=== PATIENT | female | born 1930 | race Caucasian/White ===

== ENCOUNTER 2017-03-31 06:06 | Emergency (ER) | payer MEDICARE ==
[~2017-03-31] VITALS: Ht 15.2 cm; Wt 81.6 kg
[~2017-03-31 06:06] MED LIST changes: -ASPI81TA94 PO; -SIMV-49 PO
[2017-03-31] MEDS ORDERED: SIMV-49 PO (06:11)
--- NOTE | 2017-03-31 06:16 | ER Report ---
History and Physical Time Seen By MD: 06:09 (RAMESH MARCIAL DO) HPI/ROS CHIEF COMPLAINT: Chest tightness HISTORY OF PRESENT ILLNESS: 86-year-old female presents ambulatory to the ER for her checked. She states she woke at 2 AM with tightness across her chest radiating into her arms. Patient took 2 baby aspirin at home. She describes her arms is numb and heavy. She notes no diaphoresis or shortness of breath, but she notes some nausea. On arrival, her blood pressure is noted be grossly elevated 260/121. Patient states she was told her blood pressure was elevated in February and that she should follow-up with her primary care. She did not. Patient denies recent illness. Patient notes no alleviating or exacerbating factors. REVIEW OF SYSTEMS: Respiratory: No cough, no dyspnea. Cardiovascular: As above Gastrointestinal: No vomiting, no abdominal pain. Musculoskeletal: No back pain. (RAMESH MARCIAL DO) Allergies: Uncoded Allergies: RUBBING ALCOHOL (Adverse Reaction, Mild, RASH, 05/28/07) Home Meds Reported Medications Aspirin (ASPIRIN) 81 Mg Tab.chew, 81 MG PO QDAY, TAB.CHEW 03/31/17 Simvastatin (SIMVASTATIN) 20 Mg Tablet, 20 MG PO HS, TAB 03/31/17 Gabapentin (Neurontin) 300 Mg Cap, 300 MG PO BID 05/28/07 Levothyroxine Sodium (Synthroid/Levothroid) 0.075 Mg Tab, 0.075 MG PO QDAY 05/28/07 Discontinued Reported Medications Lovastatin (Lovastatin) 40 Mg Tablet, 40 MG PO DAILY 05/28/07 Past Medical/Surgical History Past medical history: Degenerative disc disease status post lumbar surgery age 54, status post hysterectomy at age 39 for fibroids, hypothyroidism, hypercholesterolemia, peripheral neuropathy, idiopathic, overactive bladder, macular degeneration, status post I injection every 2 months at [facility], glaucoma, right eye (RAMESH MARCIAL DO) Reviewed Nurses Notes: Yes Old Medical Records Reviewed: Yes (RAMESH MARCIAL DO) Smoking Status: Never Smoker (RAMESH MARCIAL DO) Constitutional Vital Sign - Last 24 Hours 03/31/17 03/31/17 03/31/17 03/31/17 06:06 06:11 06:15 06:30 Temp 98.0 Pulse ??? 69 Resp 20 B/P (MAP) 260/121 (167) 260/121 243/75 (130) Pulse Ox 94 O2 Delivery Room Air 03/31/17 03/31/17 03/31/17 03/31/17 06:36 06:38 06:58 07:01 Pulse 62 61 75 Resp 16 29 B/P (MAP) 196/72 (113) Pulse Ox 94 94 03/31/17 03/31/17 03/31/17 03/31/17 07:10 07:13 07:18 07:26 Pulse 79 70 Resp 21 27 B/P (MAP) 237/113 (154) 172/82 (112) 164/78 (106) Pulse Ox 95 94 03/31/17 03/31/17 03/31/17 03/31/17 07:30 07:33 07:45 07:48 Pulse 70 72 Resp 22 15 B/P (MAP) 194/66 (108) 175/74 (107) Pulse Ox 92 92 03/31/17 03/31/17 03/31/17 03/31/17 08:00 08:03 08:15 08:30 Pulse 72 Resp 10 B/P (MAP) 174/79 (110) 172/82 (112) 177/87 (117) Pulse Ox 93 03/31/17 03/31/17 03/31/17 03/31/17 08:33 08:46 08:48 08:53 Pulse 77 65 61 Resp 15 23 16 B/P (MAP) 206/72 (116) Pulse Ox 95 94 93 03/31/17 03/31/17 03/31/17 03/31/17 09:00 09:08 09:15 09:23 Pulse 68 67 Resp 15 18 B/P (MAP) 192/80 (117) 181/72 (108) Pulse Ox 93 92 03/31/17 03/31/17 03/31/17 03/31/17 09:36 09:45 09:53 10:00 Pulse 66 Resp 12 B/P (MAP) 167/76 (106) 152/72 (98) 146/67 (93) Pulse Ox 92 03/31/17 03/31/17 03/31/17 10:08 10:15 10:20 Pulse 69 65 Resp 14 B/P (MAP) 142/65 (90) Pulse Ox 93 (WANDA BHANDARI MD) Physical Exam Vital signs stable, grossly elevated blood pressure 260/121, pulse ox normal, afebrile, no acute distress General Appearance: The patient is alert, has no immediate need for airway protection and no current signs of toxicity. HEENT: Pupils equal and round no injection. Oropharynx without redness or exudate, mucous. Membranes are moist Respiratory: Chest is non tender, lungs are clear to auscultation. No chest wall tenderness Cardiac: regular rate and rhythm, no murmur Gastrointestinal: Abdomen is soft and non tender, no masses, bowel sounds normal. Musculoskeletal: Neck: Neck is supple and non tender. No JVD, no lymphadenopathy Extremities have full range of motion and are non tender. No edema, no calf tenderness Skin: No rashes or lesions. DIFFERENTIAL DIAGNOSIS: After history and physical exam differential diagnosis was considered for chest pain including but not limited to myocardial ischemia, pericarditis pulmonary embolus, chest wall pain, pleural inflammation and pulmonary infectious causes. (RAMESH MARCIAL DO) Medical Decision Making Data Points Result Diagram: 03/31/17 0618 03/31/17 0618 Laboratory Hematology Test 03/31/17 06:18 03/31/17 09:32 Red Blood Count 5.24 M/uL (4.17-5.56) Mean Corpuscular Volume 83.9 fL (80.0-96.0) Mean Corpuscular Hemoglobin 28.3 pg (26.0-33.0) Mean Corpuscular Hemoglobin Concent 33.8 g/dL (32.0-36.0) Red Cell Distribution Width 15.5 % (11.5-14.5) Mean Platelet Volume 7.2 fL (7.2-11.1) Neutrophils (%) (Auto) 56.1 % (39.4-72.5) Lymphocytes (%) (Auto) 27.4 % (17.6-49.6) Monocytes (%) (Auto) 8.0 % (4.1-12.4) Eosinophils (%) (Auto) 8.2 % (0.4-6.7) Basophils (%) (Auto) 0.3 % (0.3-1.4) Nucleated RBC Relative Count (auto) 0.0 /100WBC Neutrophils # (Auto) 3.1 K/uL (2.0-7.4) Lymphocytes # (Auto) 1.5 K/uL (1.3-3.6) Monocytes # (Auto) 0.4 K/uL (0.3-1.0) Eosinophils # (Auto) 0.5 K/uL (0.0-0.5) Basophils # (Auto) 0.0 K/uL (0.0-0.1) Nucleated RBC Absolute Count (auto) 0.00 K/uL Sodium Level 142 mmol/L (137-145) Potassium Level 4.0 mmol/L (3.5-5.0) Chloride Level 101 mmol/L (98-107) Carbon Dioxide Level 31 mmol/L (22-31) Blood Urea Nitrogen 10 mg/dl (7-18) Creatinine 0.80 mg/dl (0.52-1.04) Glomerular Filtration Rate Calc > 60.0 Random Glucose 126 mg/dl (75-110) Calcium Level 9.3 mg/dl (8.4-10.2) Total Bilirubin 0.7 mg/dl (0.2-1.3) Aspartate Amino Transf (AST/SGOT) 25 U/L (0-35) Alanine Aminotransferase (ALT/SGPT) 31 U/L (0-56) Alkaline Phosphatase 84 U/L (0-126) B-Type Natriuretic Peptide 128 pg/ml (0-100) Total Protein 7.4 gm/dl (6.3-8.2) Albumin 4.1 g/dl (3.5-5.0) Troponin I < 0.012 ng/ml Chemistry Test 03/31/17 06:18 03/31/17 09:32 White Blood Count 5.5 k/uL (4.5-11.0) Red Blood Count 5.24 M/uL (4.17-5.56) Hemoglobin 14.8 g/dL (12.0-16.0) Hematocrit 44.0 % (34.0-47.0) Mean Corpuscular Volume 83.9 fL (80.0-96.0) Mean Corpuscular Hemoglobin 28.3 pg (26.0-33.0) Mean Corpuscular Hemoglobin Concent 33.8 g/dL (32.0-36.0) Red Cell Distribution Width 15.5 % (11.5-14.5) Platelet Count 198 K/uL (150-450) Mean Platelet Volume 7.2 fL (7.2-11.1) Neutrophils (%) (Auto) 56.1 % (39.4-72.5) Lymphocytes (%) (Auto) 27.4 % (17.6-49.6) Monocytes (%) (Auto) 8.0 % (4.1-12.4) Eosinophils (%) (Auto) 8.2 % (0.4-6.7) Basophils (%) (Auto) 0.3 % (0.3-1.4) Nucleated RBC Relative Count (auto) 0.0 /100WBC Neutrophils # (Auto) 3.1 K/uL (2.0-7.4) Lymphocytes # (Auto) 1.5 K/uL (1.3-3.6) Monocytes # (Auto) 0.4 K/uL (0.3-1.0) Eosinophils # (Auto) 0.5 K/uL (0.0-0.5) Basophils # (Auto) 0.0 K/uL (0.0-0.1) Nucleated RBC Absolute Count (auto) 0.00 K/uL Glomerular Filtration Rate Calc > 60.0 Calcium Level 9.3 mg/dl (8.4-10.2) Total Bilirubin 0.7 mg/dl (0.2-1.3) Aspartate Amino Transf (AST/SGOT) 25 U/L (0-35) Alanine Aminotransferase (ALT/SGPT) 31 U/L (0-56) Alkaline Phosphatase 84 U/L (0-126) B-Type Natriuretic Peptide 128 pg/ml (0-100) Total Protein 7.4 gm/dl (6.3-8.2) Albumin 4.1 g/dl (3.5-5.0) Troponin I < 0.012 ng/ml (WANDA BHANDARI MD) EKG/Imaging EKG Interpretation 12 lead EK Rhythm: normal sinus rhythm, rate of 66 [place]: normal QRS: normal ST segments: normal, there is slurring of the ST segments in the lateral leads, nonspecific in nature, no previous EKGs for comparison Imaging X-ray: Single view portable chest x-ray was obtained. I viewed the images myself on the PACS system. My interpretation of the images is: No infiltrate, no effusions, normal mediastinum, comparison to previous chest film 08/22/13, no significant change. The radiologist interpretation had no clinically significant variation from this interpretation. (RMAESH MARCIAL DO) EKG Interpretation 03/31/2017 7:26:39 am repeat EKG at 7:18 AM shows some nonspecific T-wave flattening in the lateral leads which does appear to have changed from initial EKG that was done at 622. Overall however the EKG looks primarily unchanged. (WANDA BHANDARI MD) ED Course/Re-evaluation Clinical Indication for ER IV: IV Access (RAMESH MARCIAL DO) ED Course 03/31/2017 7:27:31 am Manual blood pressure semi-Coleman's position left arm was 178/82. Blood pressure to right arm also semi-Coleman's is 164/78. 03/31/2017 7:56:35 am Patient essentially symptom-free at this time. Patient lives by herself and the [facility] which is some distance from [facility]. The patient's discomforts that seem to be exertional as well as her blood pressure exertional. She is not currently on any medication. She was told to follow up this week for possible blood pressure evaluation and initiation of medication also to have her thyroid medication check. She is followed by Dr. Parra who is since retired and has no current primary care provider. My concern at this time is the patient does seem to have exertional symptoms. Blood pressure currently is 175/74. I will discuss the case with the on-call hospitalist at time of disposition. 03/31/2017 11:47:11 am case was discussed with the hospitalist Dr. Heredia. Because of the dynamic changes in the EKG that were noted when the patient was up and ambulating with discomfort and resolution back to baseline at rest there is some concern that this could represent a cardiac condition that require higher level of care. Patient follows for other issues in both [facility] and in [place]. We discussed transfer with the patient and she is agreeable to that at this time. I spoke with Dr. Storey is the on-call solar panel installation supervisor at [facility]. History physical exam all pertinent lab data EKGs imaging studies were discussed as well as dynamic changes on the EKG noted through the emergency department stay. Dr. Storey agrees for transfer but we' ll have the patient admitted to the hospitalist service and will follow in consultation. Patient agreeable to transport at this time. She is stable for transport Decision to Disposition Date: Mar 31, 2017 Decision to Disposition Time: 11:46 Turned Over I assumed care of patient at 0700. Briefly this is an 86-year-old female who is a past medical history for hypercholesterolemia chronic pain syndrome and hypothyroidism who presents with onset of chest pressure radiating down both arms that began early this morning. Upon arrival she is found to be quite hypertensive with a blood pressure of 260/121. Upon arrival to the emergency department the patient was essentially symptom-free. She did take 2 baby aspirin prior to arrival received 2 more tablets of 81 mg upon arrival to the emergency department. Initial workup including EKG and troponin are unremarkable current blood pressure is 196/72 after 10 mg of hydralazine. Just informed by the nurse at this time that upon walking to the spouse and the patient developed a significant amount of chest pressure. We will repeat an EKG at this time. His 2nd troponin is set for 917 this morning. Chest pain [place] seems exertional. Disposition pending workup and ED course. I will add TSH considering patient may be either incorrectly dosing herself with her Synthroid medication and taking too much. Reviewed both the EKG which shows normal sinus rhythm with some nonspecific ST segment abnormality also reviewed the patient's chest x-ray which shows normal mediastinum with [place] poor of the aortic knob, AP window no evidence of apical capping or other signs that might suggest aortic dissection. We'll proceed with blood pressure in both arms at this time. I will also add 1 inch of nitroglycerin to anterior chest wall. (WANDA BHANDARI MD) Depart Departure Latest Vital Signs Vital Signs Date Time Temp Pulse Resp B/P (MAP) Pulse Ox O2 Delivery O2 Flow Rate FiO2 03/31/17 10:20 65 14 93 03/31/17 10:15 142/65 (90) 03/31/17 06:15 98.0 Room Air (WANDA BHANDARI MD) Impression: Primary Impression: Hypertensive urgency Additional Impressions: Hypothyroidism History of hyperlipidemia Idiopathic neuropathy Condition: Improved Disposition: XFER TO [facility] (To Dr Storey- [facility]) Referrals: YULIA RAMIREZ MD (PCP) Problem Qualifiers Additional Impressions: Hypothyroidism Hypothyroidism type: unspecified Qualified Codes: E03.9 - Hypothyroidism, unspecified RAMESH MARCIAL DO Mar 31, 2017 06:16 WANDA BHANDARI MD Mar 31, 2017 07:12
[2017-03-31] MEDS ORDERED: ASPI81TA94 PO (06:19)
[2017-03-31] MEDS ORDERED: hydrALAZINE HCL 20 MG/ML VIAL IVP ONE (06:20)
[2017-03-31] MEDS ORDERED: ASPIRIN 81 MG CHEW PO ONE (06:20)
[2017-03-31 06:26] LABS: PLATELET COUNT, AUTOMATED 198 K/uL (150-450)
--- NOTE | 2017-03-31 06:43 | RADIOLOGY IMAGING REPORT ---
FACILITY: [facility] - [place] PATIENT NAME: Radha Mcadams : 1930 MR: [id number] V: [id number] EXAM DATE: ORDERING PHYSICIAN: RAMESH MARCIAL TECHNOLOGIST: Location: [facility] [place] Patient: Radha Mcadams : 1930 Visit/Account:[id number] Date of Sevice: 03/31/2017 EXAMINATION: Portable AP Chest 03/31/2017 6:16 AM HISTORY: Chest pain COMPARISON: 08/22/2013 FINDINGS: Cardiomediastinal contours: Normal heart size. Atherosclerotic aorta. Lungs and pleura: No acute finding. Vague density along the left cardiophrenic angle is unchanged and presumptively related to pericardial fat. Bones/soft tissues: Osteopenia. Cardiac leads are present. IMPRESSION: Unremarkable portable chest. Report Dictated By: Ollie Carty MD at 03/31/2017 6:37 AM Report E-Signed By: Ollie Carty MD at 03/31/2017 6:38 AM WSN:[id number]
--- NOTE | 2017-03-31 06:49 | EKG ---
FACILITY: [facility] - [place] PATIENT NAME: KAPIL MORALES : [id number] MR: [id number] V: [id number] EXAM DATE: ORDERING PHYSICIAN: RAMESH MARCIAL TECHNOLOGIST: DIO Test Reason : CHEST PAIN Blood Pressure : / mmHG Vent. Rate : 066 BPM Atrial Rate : 066 BPM P-R Int : 172 ms QRS Dur : 076 ms QT Int : 446 ms P-R-T Axes : 071 065 094 degrees QTc Int : 467 ms Normal sinus rhythm No ST-T abnormalities No previous ECGs available Confirmed by JACEK SEPULVEDA ([id number]) on 03/31/2017 10:17:37 AM Referred By: Confirmed By:JACEK SEPULVEDA
[2017-03-31] MEDS ORDERED: NITROGLYCERIN OINT 1 GM PKT TP ONE (07:15)
--- NOTE | 2017-03-31 07:23 | EKG ---
FACILITY: [facility] - [place] PATIENT NAME: KAPIL MORALES : [id number] MR: [id number] V: [id number] EXAM DATE: ORDERING PHYSICIAN: WANDA BHANDARI TECHNOLOGIST: Delvin Aguiar Reason : Blood Pressure : / mmHG Vent. Rate : 070 BPM Atrial Rate : 070 BPM P-R Int : 158 ms QRS Dur : 084 ms QT Int : 428 ms P-R-T Axes : 072 057 091 degrees QTc Int : 462 ms Normal sinus rhythm Possible Left atrial enlargement Low voltage QRS Nonspecific T wave abnormality Abnormal ECG When compared with ECG of 31-MAR-2017 06:22, Nonspecific T wave abnormality now evident in Anterior leads Confirmed by JACEK SEPULVEDA ([id number]) on 03/31/2017 10:18:46 AM Referred By: Confirmed By:JACEK SEPULVEDA
--- NOTE | 2017-03-31 11:35 | EKG ---
FACILITY: [facility] - [place] PATIENT NAME: KAPIL MORALES : [id number] MR: [id number] V: [id number] EXAM DATE: ORDERING PHYSICIAN: WANDA BHANDARI TECHNOLOGIST: Delvin Aguiar Reason : Blood Pressure : / mmHG Vent. Rate : 065 BPM Atrial Rate : 065 BPM P-R Int : 170 ms QRS Dur : 068 ms QT Int : 450 ms P-R-T Axes : 066 055 091 degrees QTc Int : 468 ms Normal sinus rhythm No ST-T abnormalities When compared with ECG of 31-MAR-2017 07:18, T wave inversion less evident in Anterolateral leads Confirmed by JACEK SEPULVEDA ([id number]) on 03/31/2017 6:30:40 PM Referred By: Confirmed By:JACEK SEPULVEDA
[2017-03-31 13:25] VITALS: BP 184/77
== END 2017-03-31 13:32 | disposition short-term general hospital (02) ==
LOC: ER 06:29 → MED 10:28 → UNDOADMIN 10:28 → ER 13:32
DX: I16.0 Hypertensive urgency (principal); E03.9 Hypothyroidism, unspecified; E78.5 Hyperlipidemia, unspecified; G60.9 Hereditary and idiopathic neuropathy, unspecified
CPT/HCPCS: 36415; 71045; 83880; 84443; 84484; 85025; 93005; 96374; 99285; A9270; J0360; 82040; 82247; 82310; 82374; 82435; 82565; 82947; 84075; 84132; 84155; 84295; 84450; 84460; 84520

== ENCOUNTER → 2017-03-31 | Outpatient (CLI) | payer MEDICARE ==
[~2017-03-31] MED LIST: ASPI81TA94 PO; GAB300 PO; LEV75 PO; LOVA40TA89 PO; SIMV-49 PO
== END ==
LOC: AMB 13:18
PROVIDERS: ATTEND Nurse Practitioner
DX: I27.20 Pulmonary hypertension, unspecified (principal); R51 Headache; R53.1 Weakness
CPT/HCPCS: A0425; A0426

== ENCOUNTER → 2017-04-13 | Outpatient (CLI) | payer MEDICARE ==
[~2017-04-13] MED LIST changes: +ASPI-1471 PO; +ASPI81TA94 PO; +BRIM5DRO7 OD; +CA C1TAB9 PO; +CRAN500C11 PO; +FLUT16SP19 NS; +LATA2.5D6 OP; +LISI5TAB25 PO; +OMEG92TA PO; +RANI-375 PO; +SIMV-49 PO; +SIMV-54 PO; +TIMO5DRO3 OD; +TOLT1TAB PO; +VIT-7 PO
== END ==
LOC: LAB 16:53
PROVIDERS: ATTEND Family Medicine
DX: I10 Essential (primary) hypertension (principal)
CPT/HCPCS: 36415; 82310; 82374; 82435; 82565; 82947; 84132; 84295; 84520

== ENCOUNTER 2017-05-21 20:31 | Emergency (ER) | payer MEDICARE ==
[~2017-05-21 20:31] MED LIST changes: -TOLT1TAB PO; +TOLT1TAB13 PO
--- NOTE | 2017-05-21 21:08 | ER Report ---
History and Physical Time Seen By MD: 21:05 Hx. of Stated Complaint: Pt reporting a cough since sunday. Diarrhea. HPI/ROS 86-year-old female presents with cough, congestion and mild generalized malaise and aches. Has had several loose stools as well. Had some chills no documented fevers. Had some mild intermittent shortness of breath but nothing significant. Denies any chest pain, nausea, vomiting, abdominal pain communicate frequency or burning. Denies any rashes, increased bruising, or increased thirst. Denies any headache, visual changes, ear pain, confusion or neck pain. Multiple sick contacts at home. Denies any syncope, palpitations, lightheadedness or dizziness. Review of systems per history of present illness otherwise negative Allergies: Uncoded Allergies: RUBBING ALCOHOL (Adverse Reaction, Mild, RASH, 05/28/07) Home Meds Active Scripts Oseltamivir Phosphate (TAMIFLU) 75 Mg Cap, 75 MG PO BID, #10 CAP 0 Refills Prov:RONAL STODDARD MD 05/22/17 Albuterol Sulfate 0.083% (ALBUTEROL SULFATE 0.083%) 2.5 Mg/3 Ml Vial.neb, 2.5 MG INH Q4H Y for COUGH, #1 BOX 0 Refills Prov:RONAL STODDARD MD 05/22/17 Fluticasone Prop 50 Mcg Ns (FLONASE 50 MCG NS) 16 Gm [place].susp, 2 SPRAYS NS QDAY for 30 Days, #1 BOT 3 Refills Prov:TALAT FATIMA MD 04/13/17 Reported Medications Tolterodine Tartrate (TOLTERODINE TARTRATE) 1 Mg Tablet, 1 TAB PO PRN Pt only takes when traveling. 04/13/17 Timolol (BETIMOL) 5 Ml Drops, 1 DROP OD BID 04/13/17 Ranitidine Hcl (ZANTAC 75) 75 Mg Tablet, 1 TAB PO DAILY 04/13/17 [place] 3,6,9 Combination No.7 ([place] Dha) 92 Mg (43 Mg-22 Mg-10 Mg-17 Mg) Tab.chew, 1 CAP PO DAILY 04/13/17 Vit A,C & E/Lutein/Minerals (OCUVITE TABLET) 1 Each Tablet, 1 TAB PO DAILY 04/13/17 Latanoprost (XALATAN) 2.5 Ml Drops, 1 DROP OP HS 04/13/17 Cranberry Extract (CRANBERRY) 500 Mg Capsule, 1 CAP PO DAILY, CAPSULE 04/13/17 Calcium/Magnesium (CALCIUM MAGNESIUM TABLET) 1 Each Tablet, 1 EACH PO DAILY 04/13/17 Brimonidine Tartrate (ALPHAGAN P) 5 Ml Drops, 1 DROP OD BID 04/13/17 Lisinopril (LISINOPRIL) 5 Mg Tablet, 1 TAB PO QDAY, TAB 04/13/17 Aspirin (ASPIR 81) 81 Mg Tablet.dr, 1 TAB PO QDAY, TAB 04/13/17 Simvastatin (SIMVASTATIN) 40 Mg Tablet, 1 TAB PO HS, TAB 04/13/17 Gabapentin (Neurontin) 300 Mg Cap, 1 CAP PO BID 05/28/07 Levothyroxine Sodium (Synthroid/Levothroid) 0.075 Mg Tab, 1 TAB PO QDAY 05/28/07 Past Medical/Surgical History Per EMR Smoking Status: Former Smoker Constitutional Vital Sign - Last 24 Hours 05/21/17 05/21/17 05/21/17 05/21/17 20:50 20:50 20:52 20:56 Temp 97.7 Pulse 20 Resp 16 B/P (MAP) 203/97 208/97 (134) 203/78 (119) Pulse Ox 86 86 O2 Delivery Room Air Room Air O2 Flow Rate 2.0 05/21/17 05/21/17 05/21/17 05/21/17 21:01 21:09 21:16 21:21 Pulse 65 65 69 B/P (MAP) 171/66 (101) Pulse Ox 96 95 95 05/21/17 05/21/17 05/21/17 05/21/17 21:36 21:55 21:55 22:05 Pulse 73 93 63 Resp 18 18 Pulse Ox 95 94 O2 Delivery Nasal Cannula 05/21/17 05/21/17 05/21/17 05/21/17 22:06 22:06 22:06 22:21 Pulse 63 61 64 Resp 18 Pulse Ox 96 100 100 O2 Delivery Nasal Cannula 05/21/17 05/21/17 05/21/17 05/21/17 22:26 22:26 22:31 22:32 Pulse 67 66 69 Resp 18 B/P (MAP) 132/64 (86) Pulse Ox 96 91 05/21/17 05/21/17 05/21/1705/21/18 22:36 22:40 22:41 22:46 Pulse 68 71 73 B/P (MAP) 153/71 (98) Pulse Ox 91 92 91 05/21/17 05/21/17 05/21/17 05/21/17 22:51 23:11 23:20 23:26 Pulse 72 70 70 B/P (MAP) 162/64 (96) Pulse Ox 91 94 95 05/21/17 05/21/17 05/21/17 05/22/17 23:40 23:41 23:56 00:16 Pulse 69 71 70 B/P (MAP) 148/74 (98) Pulse Ox 94 97 97 05/22/17 05/22/17 05/22/17 00:20 00:31 00:40 Pulse 73 B/P (MAP) 170/68 (102) 193/73 (113) Pulse Ox 97 Physical Exam Physical exam: Vital signs noted. General: Patient alert [and in no acute distress]. [Does not appear ill]. Skin: [Warm, dry, without rashes, or lesions]. Head: [Normocephalic, atraumatic]. Eye: [Normal conjunctiva]. ENMT: Oral mucosa moist with mild pharyngeal erythema no exudate or edema. Neck: Supple, trachea midline no palpable lymphadenopathy. Cardiovascular: [Regular rate and rhythm without gallops murmurs or rubs. Normal peripheral perfusion with no edema noted]. Respiratory: Lungs was subtle mild expiratory wheezes in the right base with decreased air movement bilaterally.. Gastrointestinal: [Abdomen soft, nontender. Normal bowel sounds with no organomegaly. No guarding or rebound]. Back: [Nontender with normal range of motion and normal alignment]. Musculoskeletal: [Normal range of motion throughout with normal strength. No tenderness, swelling or deformities noted. Moves all extremities equally]. Neurologic: [Patient alert and oriented 4 with no focal neuro deficits cranial nerves II - XII grossly intact. Patient has normal speech] Psychiatric: [Patient is cooperative with appropriate mood and affect] Medical Decision Making Data Points Result Diagram: 05/21/17210905/21/172109 Laboratory Hematology Test 05/21/17 21:10 Red Blood Count 4.93 M/uL (4.17-5.56) Mean Corpuscular Volume 84.2 fL (80.0-96.0) Mean Corpuscular Hemoglobin 28.3 pg (26.0-33.0) Mean Corpuscular Hemoglobin Concent 33.7 g/dL (32.0-36.0) Red Cell Distribution Width 16.0 % (11.5-14.5) Mean Platelet Volume 7.5 fL (7.2-11.1) Neutrophils (%) (Auto) 62.9 % (39.4-72.5) Lymphocytes (%) (Auto) 21.8 % (17.6-49.6) Monocytes (%) (Auto) 13.1 % (4.1-12.4) Eosinophils (%) (Auto) 1.1 % (0.4-6.7) Basophils (%) (Auto) 1.1 % (0.3-1.4) Nucleated RBC Relative Count (auto) 0.2 /100WBC Neutrophils # (Auto) 2.8 K/uL (2.0-7.4) Lymphocytes # (Auto) 1.0 K/uL (1.3-3.6) Monocytes # (Auto) 0.6 K/uL (0.3-1.0) Eosinophils # (Auto) 0.0 K/uL (0.0-0.5) Basophils # (Auto) 0.0 K/uL (0.0-0.1) Nucleated RBC Absolute Count (auto) 0.01 K/uL Sodium Level 136 mmol/L (137-145) Potassium Level 4.1 mmol/L (3.5-5.0) Chloride Level 98 mmol/L (98-107) Carbon Dioxide Level 27 mmol/L (22-31) Blood Urea Nitrogen 14 mg/dl (7-18) Creatinine 1.00 mg/dl (0.52-1.04) Glomerular Filtration Rate Calc 52.4 Random Glucose 106 mg/dl (75-110) Calcium Level 8.6 mg/dl (8.4-10.2) Total Bilirubin 0.7 mg/dl (0.2-1.3) Aspartate Amino Transf (AST/SGOT) 34 U/L (0-35) Alanine Aminotransferase (ALT/SGPT) 36 U/L (0-56) Alkaline Phosphatase 79 U/L (0-126) Total Protein 6.8 gm/dl (6.3-8.2) Albumin 3.8 g/dl (3.5-5.0) Influenza Virus Type A (PCR) Negative (NEGATIVE) Influenza Virus Type B (PCR) Positive (NEGATIVE) Chemistry Test 05/21/17 21:10 White Blood Count 4.5 k/uL (4.5-11.0) Red Blood Count 4.93 M/uL (4.17-5.56) Hemoglobin 14.0 g/dL (12.0-16.0) Hematocrit 41.5 % (34.0-47.0) Mean Corpuscular Volume 84.2 fL (80.0-96.0) Mean Corpuscular Hemoglobin 28.3 pg (26.0-33.0) Mean Corpuscular Hemoglobin Concent 33.7 g/dL (32.0-36.0) Red Cell Distribution Width 16.0 % (11.5-14.5) Platelet Count 150 K/uL (150-450) Mean Platelet Volume 7.5 fL (7.2-11.1) Neutrophils (%) (Auto) 62.9 % (39.4-72.5) Lymphocytes (%) (Auto) 21.8 % (17.6-49.6) Monocytes (%) (Auto) 13.1 % (4.1-12.4) Eosinophils (%) (Auto) 1.1 % (0.4-6.7) Basophils (%) (Auto) 1.1 % (0.3-1.4) Nucleated RBC Relative Count (auto) 0.2 /100WBC Neutrophils # (Auto) 2.8 K/uL (2.0-7.4) Lymphocytes # (Auto) 1.0 K/uL (1.3-3.6) Monocytes # (Auto) 0.6 K/uL (0.3-1.0) Eosinophils # (Auto) 0.0 K/uL (0.0-0.5) Basophils # (Auto) 0.0 K/uL (0.0-0.1) Nucleated RBC Absolute Count (auto) 0.01 K/uL Glomerular Filtration Rate Calc 52.4 Calcium Level 8.6 mg/dl (8.4-10.2) Total Bilirubin 0.7 mg/dl (0.2-1.3) Aspartate Amino Transf (AST/SGOT) 34 U/L (0-35) Alanine Aminotransferase (ALT/SGPT) 36 U/L (0-56) Alkaline Phosphatase 79 U/L (0-126) Total Protein 6.8 gm/dl (6.3-8.2) Albumin 3.8 g/dl (3.5-5.0) Influenza Virus Type A (PCR) Negative (NEGATIVE) Influenza Virus Type B (PCR) Positive (NEGATIVE) ED Course/Re-evaluation ED Course 86-year-old female with cough, mild generalized weakness and diarrhea. Decreased air movement mild wheezing on arrival was markedly improved with nebulized albuterol. Oxygen saturations 85-86% on arrival so placed on 2 L oxygen via nasal cannula improved to 90-92% and remained at 95% after albuterol. Chest x-ray clear with no focal infiltrate. Patient's cough also markedly improved after albuterol. Positive for influenza. Patient otherwise feeling well markedly improved left evaluation and albuterol requesting go home. His requiring will follow oxygen so set up with a prescription for home oxygen and albuterol nebulizers as needed. Patient is here with her son and they both feel very comfortable returning home on the oxygen and will follow up closely in the next 24-48 hours with the primary care doctor. Return precautions discussed in detail and patient isn't both expressed understanding and agreement with plan. Decision to Disposition Date: May 22, 2017 Decision to Disposition Time: 01:00 Depart Departure Latest Vital Signs Vital Signs Date Time Temp Pulse Resp B/P (MAP) Pulse Ox O2 Delivery O2 Flow Rate FiO2 05/22/17 00:40 193/73 (113) 05/22/17 00:31 73 97 05/21/17 22:26 18 05/21/17 22:06 Nasal Cannula 05/21/17 20:50 97.7 05/21/17 20:50 2.0 Impression: Primary Impression: Influenza Additional Impressions: Hypoxia Bronchitis Condition: Improved Disposition: HOME OR SELF-CARE Referrals: TALAT FATIMA MD (PCP) 1 Day 86-year-old female with mild hypoxia and flu positive going home on oxygen needs close follow-up New Scripts Oseltamivir Phosphate (TAMIFLU) 75 Mg Cap 75 MG PO BID, #10 CAP 0 Refills Prov: RONAL STODDARD MD 05/22/17 Albuterol Sulfate 0.083% (ALBUTEROL SULFATE 0.083%) 2.5 Mg/3 Ml Vial.neb 2.5 MG INH Q4H Y for COUGH, #1 BOX 0 Refills Prov: RONAL STODDARD MD 05/22/17 Patient Instructions: How to Use a Nebulizer (ED), Influenza (ED), Using Oxygen at Home (ED) Additional Instructions: Follow-up with your primary care provider in the next day or 2. Call tomorrow for follow-up. Return to the emergency department for any worsening or new symptoms. Use the nebulizer with the albuterol up to every 4 hours for any shortness of breath or coughing. Problem Qualifiers RONAL STODDARD MD May 21, 2017 21:08
[2017-05-21] MEDS ORDERED: NS(*) 0.9% 1000 ML BAG 1,000 ML IV ONE (21:41)
[2017-05-21 21:58] LABS: PLATELET COUNT, AUTOMATED 150 K/uL (150-450)
[2017-05-21] MEDS: ALBUTEROL 2.5 MG/3 ML NEB NEB SCH ×2 (21:58→22:27)
--- NOTE | 2017-05-21 23:31 | RADIOLOGY IMAGING REPORT ---
FAC[place] [facility] [place]IENT NAME: Radha Mcadams : 1930 MR: [id number] V: [id number] EXAM DATE: ORDERING PHYSICIAN: RONAL STODDARD TECHNOLOGIST: Location: [facility] [place] Patient: Radha Mcadams : 1930 Visit/Account:[id number] Date of Sevice: 05/21/2017 CHEST: Indication: Respiratory distress. Technique: Frontal and lateral views were obtained. Comparison: 03/31/2017 Skeletal and soft tissue structures: There are chronic degenerative changes in the spine. No acute sk eletal deformity is identified. Heart and mediastinum: Within normal limits. Lung phillip: Well-expanded and clear. No focal or diffuse opacities. Pleural spaces: Unremarkable. Impression: No acute process or significant change. Report Dictated By: Alex Linton MD at 05/21/2017 11:25 PM Report E-Signed By: Alex Linton MD at 05/21/2017 11:27 PM WSN:[id number]
[2017-05-21] MEDS ORDERED: OSELTAMIVIR PHOS 75 MG CAP PO ONE (23:50)
[2017-05-22] MEDS ORDERED: ALBUTEROL 2.5 MG/3 ML NEB NEB ONE
[2017-05-22] MEDS ORDERED: OSE75 PO (00:01)
[2017-05-22] MEDS ORDERED: ALBU2.5V36 INH (00:01)
[2017-05-22 00:40] VITALS: BP 193/73
== END 2017-05-22 00:39 | disposition home or self-care (01) ==
LOC: ER 21:04
DX: J11.1 Influenza due to unidentified influenza virus with other respiratory manifestations (principal)
CPT/HCPCS: 36415; 71046; 85025; 87040; 87502; 94640; 96360; 96361; 99284; A9270; J7030; J7613; 82040; 82247; 82310; 82374; 82435; 82565; 82947; 84075; 84132; 84155; 84295; 84450; 84460; 84520

== ENCOUNTER → 2017-05-25 | Outpatient (CLI) | payer MEDICARE ==
[~2017-05-25] MED LIST changes: +ALBU2.5V36 INH; +OSE75 PO
--- NOTE | 2017-05-25 10:44 | RADIOLOGY IMAGING REPORT ---
FACILITY: [facility] PATIENT NAME: Radha Mcadams : 1930 MR: [id number] V: [id number] EXAM DATE: ORDERING PHYSICIAN: YESI CATALAN TECHNOLOGIST: Location: [facility] [place] Patient: Radha Mcadams : 1930 Visit/Account:[id number] Date of Sevice: 05/25/2017 Exam type: CHEST PA AND LAT History: Influenza B, cough Comparison: May 21, 2017 Findings: E lungs are free of acute effusions, infiltrates or edema. The cardiac silhouette is normal in size. Trachea is in midline. There are mild to moderate spondylotic changes in the thoracic spine.. IMPRESSION: 1. No acute pulmonary process is seen Report Dictated By: Johnna De La Cruz MD at 05/25/2017 10:38 AM Report E-Signed By: Johnna De La Cruz MD at 05/25/2017 10:40 AM WSN:[email or web address]
== END ==
LOC: RAD 10:01
PROVIDERS: ATTEND Nurse Practitioner Primary Care
DX: M47.894 Other spondylosis, thoracic region (principal)
CPT/HCPCS: 71046

== ENCOUNTER 2017-08-04 17:20 | Emergency (ER) | payer MEDICARE ==
[~2017-08-04 17:20] MED LIST changes: +LEVO75TA68 PO
--- NOTE | 2017-08-04 18:16 | ER Report ---
History and Physical Time Seen By MD: 17:45 Hx. of Stated Complaint: pt reports high bp at home, upper gi pain and nausea HPI/ROS CHIEF COMPLAINT: High blood pressure, abdominal pain HISTORY OF PRESENT ILLNESS: 86-year-old female patient presents to emergency room with complaint of high blood pressure, abdominal pain. Patient states that she felt fine today. She ate lunch which consisted of an egg with cheese, and some ice cream. She states that when she woke up she is having pain in her back as well as some right upper quadrant abdominal pain. Patient denies having any fevers, she states she's been incredibly nauseated. She denies any vomiting or diarrhea. Patient states she did take 2 full strength aspirin as well as Zantac. She states there is no improvement with that. She did decide to come in for further evaluation and she was concerned after checking her blood pressure and found that her blood pressure was 239/99. REVIEW OF SYSTEMS: Respiratory: No cough, no dyspnea. Cardiovascular: As noted above Gastrointestinal: As noted above. Musculoskeletal: No back pain. Allergies: Uncoded Allergies: RUBBING ALCOHOL (Adverse Reaction, Mild, RASH, 05/28/07) Home Meds Active Scripts Levothyroxine Sodium (SYNTHROID) 75 Mcg Tablet, 75 MCG PO QDAY, #90 TAB 3 Refills Prov:TALAT FATIMA MD 07/27/17 Oseltamivir Phosphate (TAMIFLU) 75 Mg Cap, 75 MG PO BID, #10 CAP 0 Refills Prov:RONAL STODDARD MD 05/22/17 Albuterol Sulfate 0.083% (ALBUTEROL SULFATE 0.083%) 2.5 Mg/3 Ml Vial.neb, 2.5 MG INH Q4H Y for COUGH, #1 BOX 0 Refills Prov:RONAL STODDARD MD 05/22/17 Fluticasone Prop 50 Mcg Ns (FLONASE 50 MCG NS) 16 Gm [place].susp, 2 SPRAYS NS QDAY for 30 Days, #1 BOT 3 Refills Prov:TALAT FATIMA MD 04/13/17 Reported Medications Tolterodine Tartrate (TOLTERODINE TARTRATE) 1 Mg Tablet, 1 TAB PO PRN Pt only takes when traveling. 04/13/17 Timolol (BETIMOL) 5 Ml Drops, 1 DROP OD BID 04/13/17 Ranitidine Hcl (ZANTAC 75) 75 Mg Tablet, 1 TAB PO DAILY 04/13/17 [place] 3,6,9 Combination No.7 ([place] Dha) 92 Mg (43 Mg-22 Mg-10 Mg-17 Mg) Tab.chew, 1 CAP PO DAILY 04/13/17 Vit A,C & E/Lutein/Minerals (OCUVITE TABLET) 1 Each Tablet, 1 TAB PO DAILY 04/13/17 Latanoprost (XALATAN) 2.5 Ml Drops, 1 DROP OP HS 04/13/17 Cranberry Extract (CRANBERRY) 500 Mg Capsule, 1 CAP PO DAILY, CAPSULE 04/13/17 Calcium/Magnesium (CALCIUM MAGNESIUM TABLET) 1 Each Tablet, 1 EACH PO DAILY 04/13/17 Brimonidine Tartrate (ALPHAGAN P) 5 Ml Drops, 1 DROP OD BID 04/13/17 Lisinopril (LISINOPRIL) 5 Mg Tablet, 1 TAB PO QDAY, TAB 04/13/17 Aspirin (ASPIR 81) 81 Mg Tablet.dr, 1 TAB PO QDAY, TAB 04/13/17 Simvastatin (SIMVASTATIN) 40 Mg Tablet, 1 TAB PO HS, TAB 04/13/17 Gabapentin (Neurontin) 300 Mg Cap, 1 CAP PO BID 05/28/07 Past Medical/Surgical History Patient has a past medical history of hypertension, bladder infections, back pain. Patient has a past surgical history of back surgery 2, eye surgery for glaucoma , hysterectomy. Reviewed Nurses Notes: Yes Smoking Status: Former Smoker Constitutional Vital Sign - Last 24 Hours 08/04/17 17:20 Temp 97.7 Pulse 70 Resp 16 B/P (MAP) 214/84 Pulse Ox 92 O2 Delivery Room Air Physical Exam General Appearance: The patient is alert, has no immediate need for airway protection and no current signs of toxicity. ENT: Tympanic membranes are pearly-stanton, auditory canals are patent, mucous membranes are moist. Respiratory: Chest is non tender, lungs are clear to auscultation. Cardiac: regular rate and rhythm Gastrointestinal: Abdomen is soft and tender in the left lower quadrant, no masses, bowel sounds normal. Musculoskeletal: Neck: Neck is supple and non tender. Extremities have full range of motion and are non tender. Skin: No rashes or lesions. DIFFERENTIAL DIAGNOSIS: After history and physical exam differential diagnosis was considered for abdominal pain including but not limited to appendicitis, cholecystitis, gastritis and urinary tract infection. Also included in the differential is hypertensive urgency, hypertensive emergency, [place]. Medical Decision Making Data Points Result Diagram: 08/04/170 08/04/170 Laboratory Hematology Test 08/04/17 18:20 08/04/17 18:38 Red Blood Count 4.87 M/uL (4.17-5.56) Mean Corpuscular Volume 83.3 fL (80.0-96.0) Mean Corpuscular Hemoglobin 28.2 pg (26.0-33.0) Mean Corpuscular Hemoglobin Concent 33.8 g/dL (32.0-36.0) Red Cell Distribution Width 16.3 % (11.5-14.5) Mean Platelet Volume 6.9 fL (7.2-11.1) Neutrophils (%) (Auto) 71.7 % (39.4-72.5) Lymphocytes (%) (Auto) 17.4 % (17.6-49.6) Monocytes (%) (Auto) 7.7 % (4.1-12.4) Eosinophils (%) (Auto) 2.2 % (0.4-6.7) Basophils (%) (Auto) 1.0 % (0.3-1.4) Nucleated RBC Relative Count (auto) 0.1 /100WBC Neutrophils # (Auto) 5.4 K/uL (2.0-7.4) Lymphocytes # (Auto) 1.3 K/uL (1.3-3.6) Monocytes # (Auto) 0.6 K/uL (0.3-1.0) Eosinophils # (Auto) 0.2 K/uL (0.0-0.5) Basophils # (Auto) 0.1 K/uL (0.0-0.1) Nucleated RBC Absolute Count (auto) 0.00 K/uL Sodium Level 141 mmol/L (137-145) Potassium Level 4.0 mmol/L (3.5-5.0) Chloride Level 104 mmol/L (98-107) Carbon Dioxide Level 27 mmol/L (22-31) Blood Urea Nitrogen 11 mg/dl (7-18) Creatinine 0.90 mg/dl (0.52-1.04) Glomerular Filtration Rate Calc 59.2 Random Glucose 164 mg/dl (75-110) Calcium Level 9.2 mg/dl (8.4-10.2) Total Bilirubin 1.2 mg/dl (0.2-1.3) Aspartate Amino Transf (AST/SGOT) 388 U/L (0-35) Alanine Aminotransferase (ALT/SGPT) 168 U/L (0-56) Alkaline Phosphatase 127 U/L (0-126) Troponin I < 0.012 ng/ml Total Protein 6.3 gm/dl (6.3-8.2) Albumin 3.5 g/dl (3.5-5.0) Amylase Level 134 U/L (0-110) Lipase 610 U/L (23-300) Urine Color Yellow Urine Clarity Slightly-cloudy Urine pH 5.0 pH (4.8-9.5) Urine Specific [place] 1.009 Urine Protein Negative mg/dL (NEGATIVE) Urine Glucose (UA) Negative mg/dL (NEGATIVE) Urine Ketones Negative mg/dL (NEGATIVE) Urine Blood Negative (NEGATIVE) Urine Nitrite Positive (NEGATIVE) Urine Bilirubin Negative (NEGATIVE) Urine Urobilinogen Negative mg/dL (0.2-1.9) Urine Leukocyte Esterase Moderate (NEGATIVE) Urine RBC 3 /HPF (0-2/HPF) Urine WBC 51 /HPF (0-5/HPF) Urine Squamous Epithelial Cells Many /LPF (</=FEW) Urine Bacteria Moderate /HPF (NONE-FEW) Urine Hyaline Casts Few /LPF (NONE-FEW) Urine Mucus None /HPF (NONE-FEW) Chemistry Test 08/04/17 18:20 08/04/17 18:38 White Blood Count 7.6 k/uL (4.5-11.0) Red Blood Count 4.87 M/uL (4.17-5.56) Hemoglobin 13.7 g/dL (12.0-16.0) Hematocrit 40.6 % (34.0-47.0) Mean Corpuscular Volume 83.3 fL (80.0-96.0) Mean Corpuscular Hemoglobin 28.2 pg (26.0-33.0) Mean Corpuscular Hemoglobin Concent 33.8 g/dL (32.0-36.0) Red Cell Distribution Width 16.3 % (11.5-14.5) Platelet Count 180 K/uL (150-450) Mean Platelet Volume 6.9 fL (7.2-11.1) Neutrophils (%) (Auto) 71.7 % (39.4-72.5) Lymphocytes (%) (Auto) 17.4 % (17.6-49.6) Monocytes (%) (Auto) 7.7 % (4.1-12.4) Eosinophils (%) (Auto) 2.2 % (0.4-6.7) Basophils (%) (Auto) 1.0 % (0.3-1.4) Nucleated RBC Relative Count (auto) 0.1 /100WBC Neutrophils # (Auto) 5.4 K/uL (2.0-7.4) Lymphocytes # (Auto) 1.3 K/uL (1.3-3.6) Monocytes # (Auto) 0.6 K/uL (0.3-1.0) Eosinophils # (Auto) 0.2 K/uL (0.0-0.5) Basophils # (Auto) 0.1 K/uL (0.0-0.1) Nucleated RBC Absolute Count (auto) 0.00 K/uL Glomerular Filtration Rate Calc 59.2 Calcium Level 9.2 mg/dl (8.4-10.2) Total Bilirubin 1.2 mg/dl (0.2-1.3) Aspartate Amino Transf (AST/SGOT) 388 U/L (0-35) Alanine Aminotransferase (ALT/SGPT) 168 U/L (0-56) Alkaline Phosphatase 127 U/L (0-126) Troponin I < 0.012 ng/ml Total Protein 6.3 gm/dl (6.3-8.2) Albumin 3.5 g/dl (3.5-5.0) Amylase Level 134 U/L (0-110) Lipase 610 U/L (23-300) Urine Color Yellow Urine Clarity Slightly-cloudy Urine pH 5.0 pH (4.8-9.5) Urine Specific [place] 1.009 Urine Protein Negative mg/dL (NEGATIVE) Urine Glucose (UA) Negative mg/dL (NEGATIVE) Urine Ketones Negative mg/dL (NEGATIVE) Urine Blood Negative (NEGATIVE) Urine Nitrite Positive (NEGATIVE) Urine Bilirubin Negative (NEGATIVE) Urine Urobilinogen Negative mg/dL (0.2-1.9) Urine Leukocyte Esterase Moderate (NEGATIVE) Urine RBC 3 /HPF (0-2/HPF) Urine WBC 51 /HPF (0-5/HPF) Urine Squamous Epithelial Cells Many /LPF (</=FEW) Urine Bacteria Moderate /HPF (NONE-FEW) Urine Hyaline Casts Few /LPF (NONE-FEW) Urine Mucus None /HPF (NONE-FEW) Urinalysis Test 08/04/17 18:38 Urine Color Yellow Urine Clarity Slightly-cloudy Urine pH 5.0 pH (4.8-9.5) Urine Specific [place] 1.009 Urine Protein Negative mg/dL (NEGATIVE) Urine Glucose (UA) Negative mg/dL (NEGATIVE) Urine Ketones Negative mg/dL (NEGATIVE) Urine Blood Negative (NEGATIVE) Urine Nitrite Positive (NEGATIVE) Urine Bilirubin Negative (NEGATIVE) Urine Urobilinogen Negative mg/dL (0.2-1.9) Urine Leukocyte Esterase Moderate (NEGATIVE) Urine RBC 3 /HPF (0-2/HPF) Urine WBC 51 /HPF (0-5/HPF) Urine Squamous Epithelial Cells Many /LPF (</=FEW) Urine Bacteria Moderate /HPF (NONE-FEW) Urine Hyaline Casts Few /LPF (NONE-FEW) Urine Mucus None /HPF (NONE-FEW) EKG/Imaging EKG Interpretation 12 lead EKG: Rhythm: normal sinus rhythm with a ventricular rate of 63 bpm [place]: normal QRS: normal ST segments: Flattening of T-wave in V1. Imaging EXAMINATION: CT abdomen and pelvis with contrast COMPARISON: None. HISTORY: abdominal pain PROCEDURE: Multiplanar contrast enhanced CT of the abdomen and pelvis with 75 mL intravenous Isovue 370. One of the following dose optimization techniques was utilized in the performance of this exam: Automated exposure control; adjustment of the mA and/or kV according to the patient's size; or use of an iterative reconstruction technique. Specific details can be referenced in the facility's radiology CT exam operational policy. FINDINGS: Visualized thorax: No evidence of acute disease within the visualized lower thorax. Liver: Left hepatic lobe 2.0 x 4.6 x 4.1 cm cyst. Gallbladder and biliary system: Multiple small calcified gallstones with at least four stones measuring up to 4 mm in the common bile duct. Mild gallbladder wall hyperemia and pericholecystic inflammation. Spleen: Negative. Pancreas: No pancreatic duct dilation or parenchymal inflammation. Adrenal glands: Negative. Kidneys and bladder: No renal mass or evidence of an obstructive uropathy. Urinary bladder is unremarkable. Vessels: Moderate aortoiliac atherosclerosis. No abdominal aortic aneurysm. Portal venous system and IVC are unremarkable. Bowel and mesentery: Small hiatal hernia. No gastric distention. No small bowel obstruction. The appendix is not identified; no pericecal inflammation. Small amount of stool in the colon. Distal descending colon and sigmoid moderate diverticulosis. No bowel or mesenteric inflammation. Pelvic organs: Hysterectomy. No adnexal mass. Lymph nodes: No adenopathy. Free air/free fluid: None. Abdominal wall and osseous structures: Small fat-containing umbilical hernia. Demineralization. Moderately advanced degenerative disc disease at L4-L5 and L5- S1 as well as to lesser extent L2-L3 and L3-L4. This is associated with at least mild to moderate multilevel canal, lateral recess, and foraminal narrowing. No acute findings. IMPRESSION: 1. Choledocholithiasis with cholecystitis. Surgical consultation is recommended. 2. Additional nonacute findings as described above. Results were discussed with AAKASH WILLINGHAM at 08/04/2017 7:41 PM. Report Dictated By: Gume Angulo MD at 08/04/2017 7:36 PM Report E-Signed By: Gume Angulo MD at 08/04/2017 7:46 PM Examination: CHEST PA AND LAT Comparison: 05/25/2017 History: Chest pain. Findings: No consolidation, nodule, or peribronchial inflammation. No pneumothorax, edema, or effusion. Cardiac and hilar contour size is within normal limits. Aortic atherosclerosis. No acute osseous abnormality. IMPRESSION: Unchanged chest with no evidence of acute cardiopulmonary disease. Report Dictated By: Gume Angulo MD at 08/04/2017 7:34 PM Report E-Signed By: Gume Angulo MD at 08/04/2017 7:36 PM ED Course/Re-evaluation ED Course Patient was admitted to an exam room, history and physical were obtained. Differential diagnoses were considered. On examination patient had tenderness in the left lower quadrant, there is no tenderness in the right upper quadrant. A CBC, CMP, urinalysis were obtained. The CBC showed a normal white count, CMP showed elevated AST, ALT, alkaline phosphatase as well as elevated amylase and lipase. A chest x-ray and CT scan of the abdomen and pelvis were done. CT scan does show choledocholithiasis with 4 stones in the common bile duct, also has acute cholecystitis. A chest x-ray, EKG and troponin were done. The troponin was negative. EKG showed some flattening of the T-wave in V1. Chest x-ray showed no acute cardiopulmonary processes. I discussed the case with Dr. Osman , general surgeon, he felt the patient should go down to [place] for ERCP. I discussed this with the patient and her son they verbalized understanding and agreement. I then called and talked to Dr. Cheng, hospitalist at [facility], who agreed to accept the patient for admission. We will have him transferred down by private vehicle. We will do that as the patient has stable vital signs and no pain at this time. Decision to Disposition Date: August 04, 2017 Decision to Disposition Time: 20:20 Depart Departure Latest Vital Signs Vital Signs Date Time Temp Pulse Resp B/P (MAP) Pulse Ox O2 Delivery O2 Flow Rate FiO2 08/04/17 17:20 97.7 70 16 214/84 92 Room Air Impression: Primary Impression: Choledocholithiasis Additional Impression: Cholecystitis Condition: Condition Unchanged Disposition: XFER TO [facility] Referrals: TALAT FATIMA MD (PCP) Patient Instructions: Cholecystitis (ED) Additional Instructions: Go straight to [facility] in [place]. You may have sips of water. Wear seat belts. Problem Qualifiers AAKASH WILLINGHAM August 04, 2017 18:16
[2017-08-04] MEDS ORDERED: NS 0.9% 150 ML BAG 150 ML ONE (18:28)
[2017-08-04] MEDS ORDERED: IOPAMIDOL 76% 75 ML INFUS BTL 75 ML ONE (18:28)
[2017-08-04 18:31] LABS: PLATELET COUNT, AUTOMATED 180 K/uL (150-450)
--- NOTE | 2017-08-04 19:41 | RADIOLOGY IMAGING REPORT ---
FACILITY: [facility] PATIENT NAME: Radha Mcadams : 1930 MR: [id number] V: [id number] EXAM DATE: ORDERING PHYSICIAN: AAKASH WILLINGHAM TECHNOLOGIST: Location: [facility] Patient: Radha Mcadams : 1930 Visit/Account:[id number] Date of Sevice: 08/04/2017 Examination: CHEST PA AND LAT Comparison: 05/25/2017 History: Chest pain. Findings: No consolidation, nodule, or peribronchial inflammation. No pneumothorax, edema, or effusio n. Cardiac and hilar contour size is within normal limits. Aortic atherosclerosis. No acute osseous a bnormality. IMPRESSION: Unchanged chest with no evidence of acute cardiopulmonary disease. Report Dictated By: Gume Angulo MD at 08/04/2017 7:34 PM Report E-Signed By: Gume Angulo MD at 08/04/2017 7:36 PM WSN:[id number]
--- NOTE | 2017-08-04 19:50 | RADIOLOGY IMAGING REPORT ---
FACILITY: [facility] PATIENT NAME: Radha Mcadams : 1930 MR: [id number] V: [id number] EXAM DATE: ORDERING PHYSICIAN: AAKASH WILLINGHAM TECHNOLOGIST: Location: [facility] Patient: Radha Mcadams : 1930 Visit/Account:[id number] Date of Sevice: 08/04/2017 EXAMINATION: CT abdomen and pelvis with contrast COMPARISON: None. HISTORY: abdominal pain PROCEDURE: Multiplanar contrast enhanced CT of the abdomen and pelvis with 75 mL intravenous Isovue 3 70. One of the following dose optimization techniques was utilized in the performance of this exam: A utomated exposure control; adjustment of the mA and/or kV according to the patient's size; or use of an iterative reconstruction technique. Specific details can be referenced in the facility's radiolo gy CT exam operational policy. FINDINGS: Visualized thorax: No evidence of acute disease within the visualized lower thorax. Liver: Left hepatic lobe 2.0 x 4.6 x 4.1 cm cyst. Gallbladder and biliary system: Multiple small calcified gallstones with at least four stones measuri ng up to 4 mm in the common bile duct. Mild gallbladder wall hyperemia and pericholecystic inflammati on. Spleen: Negative. Pancreas: No pancreatic duct dilation or parenchymal inflammation. Adrenal glands: Negative. Kidneys and bladder: No renal mass or evidence of an obstructive uropathy. Urinary bladder is unrema rkable. Vessels: Moderate aortoiliac atherosclerosis. No abdominal aortic aneurysm. Portal venous system and IVC are unremarkable. Bowel and mesentery: Small hiatal hernia. No gastric distention. No small bowel obstruction. The appe ndix is not identified; no pericecal inflammation. Small amount of stool in the colon. Distal descend ing colon and sigmoid moderate diverticulosis. No bowel or mesenteric inflammation. Pelvic organs: Hysterectomy. No adnexal mass. Lymph nodes: No adenopathy. Free air/free fluid: None. Abdominal wall and osseous structures: Small fat-containing umbilical hernia. Demineralization. Moder ately advanced degenerative disc disease at L4-L5 and L5-S1 as well as to lesser extent L2-L3 and L3- L4. This is associated with at least mild to moderate multilevel canal, lateral recess, and foraminal narrowing. No acute findings. IMPRESSION: 1. Choledocholithiasis with cholecystitis. Surgical consultation is recommended. 2. Additional nonacute findings as described above. Results were discussed with AAKASH WILLINGHAM at 08/04/2017 7:41 PM. Report Dictated By: Gume Angulo MD at 08/04/2017 7:36 PM Report E-Signed By: Gume Angulo MD at 08/04/2017 7:46 PM WSN:[id number]
[2017-08-04 20:30] VITALS: BP 180/86
--- NOTE | 2017-08-05 09:20 | EKG ---
[facility] PATIENT NAME: KAPIL MORALES : [id number] MR: [id number] V: [id number] EXAM DATE: ORDERING PHYSICIAN: AAKASH WILLINGHAM TECHNOLOGIST: MONET Test Reason : ABD PAIN Blood Pressure : / mmHG Vent. Rate : 063 BPM Atrial Rate : 063 BPM P-R Int : 156 ms QRS Dur : 082 ms QT Int : 448 ms P-R-T Axes : 061 059 074 degrees QTc Int : 458 ms Normal sinus rhythm No ST-T abnormalities When compared with ECG of 31-MAR-2017 10:27, relatively unchanged Confirmed by JACEK SEPULVEDA ([id number]) on 08/05/2017 1:46:27 PM Referred By: RACHEL Confirmed By:JACEK SEPULVEDA
== END 2017-08-04 20:57 | disposition short-term general hospital (02) ==
LOC: ER 17:30
DX: K80.40 Calculus of bile duct with cholecystitis, unspecified, without obstruction (principal)
CPT/HCPCS: 71046; 74177; 81001; 82150; 83690; 84484; 85025; 87088; 93005; 99285; Q9967; 82040; 82247; 82310; 82374; 82435; 82565; 82947; 84075; 84132; 84155; 84295; 84450; 84460; 84520; 87077; 87186

== ENCOUNTER → 2017-08-16 | Outpatient (CLI) | payer MEDICARE | LOC: LAB 11:32 | PROVIDERS: ATTEND Urology | DX: N39.0 Urinary tract infection, site not specified (principal); B96.89 Other specified bacterial agents as the cause of diseases classified elsewhere | CPT/HCPCS: 81001; 87077; 87088; 87186 ==

== ENCOUNTER → 2018-02-14 | Outpatient (CLI) | payer MEDICARE ==
[~2018-02-14] MED LIST changes: +BEV100I INTRAVI011; +BIMA2.5D5 OP
[2018-02-14 14:17] LABS: PLATELET COUNT, AUTOMATED 210 K/uL (150-450)
== END ==
LOC: LAB 13:58
PROVIDERS: ATTEND Family Medicine
DX: E03.9 Hypothyroidism, unspecified (principal); I10 Essential (primary) hypertension
CPT/HCPCS: 36415; 82040; 82247; 82310; 82374; 82435; 82565; 82947; 84075; 84132; 84155; 84295; 84443; 84450; 84460; 84520; 85025

== ENCOUNTER → 2018-07-03 | Outpatient (CLI) | payer MEDICARE ==
[~2018-07-03] MED LIST changes: +GABA-549 PO
--- NOTE | 2018-07-03 11:34 | RADIOLOGY IMAGING REPORT ---
FACILITY: [facility] PATIENT NAME: Radha Mcadams : 1930 MR: [id number] V: [id number] EXAM DATE: ORDERING PHYSICIAN: TALAT FATIMA TECHNOLOGIST: Location: [facility] Patient: Radha Mcadams : 1930 Visit/Account:[id number] Date of Sevice: 07/03/2018 DEXA Scan Clinical history: Postmenopausal. Comparison: None available. LUMBAR SPINE: The bone mineral density (BMD) measured from L1-L4 correlates with a Z-score 3.9 and a T-score of 2.3 which is Normal as defined by the World Health Organization. The corresponding risk of fracture in the lumbar spine is Not increased compared with a young adult reference population. HIP: Bone mineral density (BMD) measured in the Left total hip region correlates with a Z-score 3.8 and a T-score of 1.6 which is Normal as defined by the World Health Organization. The corresponding risk o f fracture in the hip is Not increased compared with a young adult reference population. T score le ft femoral neck 1.4 Bone mineral density (BMD) measured in the Femoral Neck region measures 1.236 g/cm2. Impression: 1. Lumbar spine: Normal. 2. Left Hip: Normal. 3. Femoral Neck: Bone Mineral Density is 1.236 g/cm2 The next DEXA scan of this patient should include the following sites: L1-L4 and the left hip. FRAX? WHO Fracture Risk Assessment Tool link: <http://www.shef.ac.uk/FRAX/tool.jsp?[email or web address]> PLEASE NOTE: 1) The World Health Organization defines low BMD as follows: T-score Normal > -1 Osteopenia < -1 and > -2.5 Osteoporosis < -2.5 without fractures Established osteoporosis < -2.5 with fractures 2) In general, you may wish to consider: Diagnosis Treatment Follow-up DEXA Normal BMD Prevention 2-3 years Osteopenia Prevention/therapy 1-2 years Osteoporosis Therapy Yearly 3) Fracture risk estimated from the T-score is more accurate for vertebral fractures (often spontane ous) than for hip fractures. Report Dictated By: Johnna De La Cruz MD at 07/03/2018 11:29 AM Report E-Signed By: Johnna De La Cruz MD at 07/03/2018 11:30 AM WSN:[email or web address]
== END ==
LOC: RAD 06-27 00:52
PROVIDERS: ATTEND Family Medicine
DX: Z78.0 Asymptomatic menopausal state (principal)
CPT/HCPCS: 77080